=== PATIENT | male | born 1960 | race Caucasian/White ===

== ENCOUNTER 2018-07-30 19:29 | Emergency (ER) | payer BC, SELFPAY ==
[2018-07-30 19:38] VITALS: BP 169/102; PULSE 97; RESP 18; TEMP 37; O2SAT 95
--- NOTE | 2018-07-30 20:06 | ED.GENADUL_ITS ---
Discharge Plan Disposition Patient Disposition: HOME Condition: Stable Discharge Details Chief Complaint: Dizzy/Sync Clinical Impression: Feeling anxious Reason For Visit: felt weird ED Provider: Ezra Mancia Home Meds and New Rx's Prescriptions: Continued almotriptan malate 12.5 mg Tablet PO RF: 0 aspirin 81 mg Tablet,Chewable 81 mg PO BID RF: 0 lisinopril-hydrochlorothiazide 10-12.5 mg Tablet PO BID RF: 0 sildenafil [Viagra] 25 mg Tablet RF: 0 Discharge Instructions Additional Instructions: Your exam and lab work here did not show any significant abnormality. THere was evidence of mild dehydration Follow up with your primary care provider within 1-2 weeks if symptoms continue if you have chest pain/pressure, difficulty breathing, slurred speech, weakness especially on one side of the body or vision changes return to the emergency department for reevaluation Medical Decision Making 57 yo male with hx of htn, carotid stenosis who is being followed by vascular surgery for left carotid stenosis per pt, who comes in after he had an episode while sitting watching television where he just felt weird and anxious per pt. He denies any symptoms now. He denies dyspnea, chest pain/pressure, weakness, slurred speech. He has NIH 0, no focal neuro deficits. No findings on history or physical exam to suggest tia/cva. No chest pain or pressure to suggest acs or arrythmia. Will monitor here and eval for possible electrolyte abnormalities. pt has remained stable, still no neuro deficits, walking without problems with stable gait. Labs show mild increase in BUN which could indicate mild dehydration. He remains without symptoms here. I feel he is safe for d/c. I did recommend he f/u with pcp within 1-2 weeks and if symptoms return or worsen to return immediately and he understood these instructions Differential Diagnosis electrolyte abnormality, anxiety, tia Lab Data Lab results reviewed: Yes I reviewed the patient's lab results. ECG Data Attestation: I personally reviewed and interpreted this ECG (s) as follows: Prior ECG tracings: not available for review Interpretation: sinus rhythm, rate of 106, pr 180, no acute st t wave ischemic findings HPI General Mode of arrival: ambulatory . Date/Time Provider Initiated Documentation: 07/30/18 19:56 . Limitations to Documentation: no limitations . Information obtained by: patient . History of Present Illness 57 year old M presents to the emergency department with the chief complaint of felt weird and anxious, described as mild, with intensity rated at 4. Patient started experiencing this hour(s) (3) and it has been now resolved. No relieving factors improve symptom(s), No exacerbating factors reported . Patient did receive the following treatments prior to arrival, Aspirin Related Data Home Medications Medication Instructions Recorded Confirmed almotriptan malate PO 07/30/18 aspirin 81 mg PO BID 07/30/18 07/30/18 lisinopril-hydrochlorothiazide PO BID 07/30/18 sildenafil [Viagra] 07/30/18 Allergies Allergy/AdvReac Type Severity Reaction Status Date / Time No Known Allergies Allergy Unverified 07/30/18 19:41 General Stated Complaint: Dizzy/Sync LIZANDRO: 2 Review of Systems Review of Systems All systems reviewed & are unremarkable except as noted in HPI and below Constitutional Denies fever(s) and Denies weakness Eyes Denies loss of vision ENT Denies change in voice Cardiovascular Denies chest pain and Denies dyspnea Respiratory Denies cough and Denies dyspnea Gastrointestinal Denies abdominal pain, Denies nausea and Denies vomiting Musculoskeletal Denies joint swelling Neurologic Denies loss of vision and Denies weakness Endocrine Denies cold intolerance and Denies heat intolerance PFSH Social History Smoking/Tobacco Use Status: Former Tobacco Use Exam Const General: no acute distress Orientation: alert HENMT Head: normal to inspection Ears: external ears normal General nose exam: external nose normal Mouth: moist mucous membranes Eyes General: appearance normal, both eyes and all related structures Neck Neck: normal visual inspection Resp Effort & Inspection: normal respiratory effort and able to speak in complete sentences Cardio Rate: regular rate Skin General skin exam: no rashes or lesions noted Neuro General: alert and oriented x3 Extrem General: normal to inspection Psych Mental Status: mental status grossly normal Course Vital Signs Temperature 37 C 07/30/18 19:38 Pulse 97 H 07/30/18 19:38 Respiratory Rate 18 07/30/18 19:38 Blood Pressure 169/102 H 07/30/18 19:38 Pulse Oximetry 95 07/30/18 19:38 Temperature 37 C 07/30/18 19:38 Temperature Source Temporal Artery Scan 07/30/18 19:38 Pulse 97 H 07/30/18 19:38 Respiratory Rate 18 07/30/18 19:38 Blood Pressure 169/102 H 07/30/18 19:38 Pulse Oximetry 95 07/30/18 19:38 Oxygen Delivery Method Room Air 07/30/18 19:38 Oxygen Flow Rate 0 07/30/18 19:38
[2018-07-30 20:24] VITALS: BP 127/87; PULSE 90; RESP 18; TEMP 37; O2SAT 94
[2018-07-30 20:30] LABS: Abs Immature Grans 0.04 k/cumm (0.0-0.09); Absolute Basophil Count 0.04 k/cumm (0.0-0.2); Absolute Eosinophil Count 0.16 k/cumm (0.0-0.7); Absolute Lymphocyte Count 2.54 k/cumm (1.2-3.4); Absolute Monocyte Count 0.69 k/cumm (0.11-0.7); Absolute Neutrophil Count 5.56 k/cumm (1.2-6.7); Basophils % 0.4; Eosinophils % 1.8; HCT 43.7 % (40.0-50.0); Immature Grans % 0.4; Lymphocytes % 28.1; Mean Corp. HGB Concentration 34.3 g/dL (32.0-36.0); Mean Corpuscular Hemoglobin 30.9 pg (27.0-33.0); Mean Corpuscular Volume 89.9 fL (80-95); Mean Platelet Volume 9.5 fL (8.0-11.0); Monocytes % 7.6; Neutrophils % 61.7; Platelet Count 194 x1000/uL (130-400); RBC 4.86 m/cumm (4.50-6.00); White Blood Cell Count 9.03 k/cumm (4.4-10.8)
[2018-07-30 20:40] LABS: PTT Activated 23.6 sec (21.0-31.4); Prothrombin Time 10.1 sec (9.3-11.0)
[2018-07-30 20:41] LABS: ALT 31 U/L (12-78); AST 18 U/L (15-37); Albumin 3.8 g/dL (3.4-5.0); Alkaline Phosphatase 95 U/L (46-116); BUN 23 mg/dL (7-18); Bilirubin, Total 0.4 mg/dL (0.2-1.0); CREATININE 1.08 mg/dL (0.70-1.30); Calcium 9.5 mg/dL (8.5-10.1); Chloride 103 mmol/L (98-107); Glucose 102 mg/dL (70-100); Magnesium 1.6 mg/dL (1.8-2.4); Potassium 3.5 mmol/L (3.5-5.1); Sodium 140 mmol/L (136-145); Total Protein 7.7 g/dL (6.4-8.2); Troponin I < 0.02 ng/mL (0.00-0.06)
== END 2018-07-30 22:10 | disposition home or self-care (01) ==
LOC: ER 22:10
PROVIDERS: Emergency Provider Emergency Medicine; PCP Internal Medicine
DX: F41.9 Anxiety disorder, unspecified (principal); E86.0 Dehydration; I65.22 Occlusion and stenosis of left carotid artery; I10 Essential (primary) hypertension
CPT/HCPCS: 36415; 80053; 93005; 99284; 83735; 84484; 85025; 85610; 85730; 93010